=== PATIENT | female | born 1965 | race Caucasian/White ===

== ENCOUNTER 2016-12-06 20:58 | Emergency (ER) | payer BC ==
[2016-12-06] MEDS ORDERED: ONDANSETRON HCL 4 MG/2 ML VIAL ONE (21:42)
[2016-12-06] MEDS ORDERED: LOPERAMIDE HCL 2 MG CAPSULE PO ONE (22:55)
[2016-12-06] MEDS ORDERED: HALOPERIDOL 5 MG/ML VIAL ONE (23:22)
[2016-12-07] MEDS ORDERED: ONDANSETRON ODT PREPAC 4 MG TAB.RAPDIS PO ONE (00:35)
--- NOTE | 2016-12-07 00:51 | ER NURSING DOCUMENTATION ---
Nurse's Notes [facility] Name:Cindy Asencio Age:51 yrs Sex:Female :1965 Arrival Date:12/06/2016 Time:20:58 Bed3 Private MD: Diagnosis:Vomiting - Diarrhea;Abdominal Pain, Epigastric Presentation: 12/06 21:14 Presenting complaint: Patient states: Sudden onset of N/V/D. Transition of care: Home. [facility] 21:14 Method Of Arrival: Walk In [facility] 21:14 Acuity: DANIEL 3 [facility] Triage Assessment: 21:15 General: Appears in no apparent distress, Behavior is appropriate for age. Pain: [facility] Complains of pain in abdomen Pain does not radiate. GI: Abdomen is distended, Pt is actively vomiting bile, Bowel sounds present X 4 quads. Abdomen is tender to palpation X 4 quads. Reports diarrhea, nausea, vomiting. Historical: - Allergies: No known drug Allergies; - Home Meds: 1. Zoloft 100 mg oral tab Unknown once daily - Tetanus: < 10 years. - Ebola Screening: : No symptoms or risks identified at this time. . - Immunization history: Flu Vaccine < 1 year. - Social history: Smoking status: Patient states was never smoker of tobacco. Screenin:16 Infectious Disease Risk None. Abuse screen: Denies threats or abuse. Nutritional [facility] screening: No deficits noted. Assessment: 21:16 See Triage Assessment done by same RN. [facility] Vital Signs: 21:05 BP 135 / 82 LA Sitting (auto/reg); Pulse 86 RA; Resp 20 S; Temp 98.0(O); Pulse Ox 93% em3 on R/A; Weight 77.11 kg (R); Height 5 ft. 4 in. (162.56 cm) (R); 23:30 BP 125 / 78; Pulse 80; Resp 17; Pulse Ox 93% on R/A; [facility] 12/07 00:42 BP 132 / 67; Pulse 83; Resp 15; Temp 98.2; Pulse Ox 93% ; Pain 2/10; [facility] 12/06 21:05 Body Mass Index 29.18 (77.11 kg, 162.56 cm) em3 ED Course: 12/06 20:58 Patient arrived in ED. ma1 21:06 Valuables Remains with patient Patient has correct armband on for positive em3 identification. Placed in gown. Bed in low position. Call light in reach. Side rails up X 1. 21:13 Meka Sanchez is Primary Nurse. 4 21:14 Triage completed. mk4 21:16 Arm band placed on Bed in low position Call Light in Reach Side rails up x2. mk4 21:16 port warden on. Pulse ox on. NIBP on. Verbal reassurance given. Warm blanket given. mk4 21:19 Brody Merchant MD is Attending Physician. tl1 22:30 Inserted peripheral IV: 20 gauge in left antecubital area. [facility] 12/07 01:50 Primary Nurse role handed off by Meka Sanchez 4 01:50 Meka Sanchez is Primary Nurse. 4 Administered Medications: Completed: NS 0.9% 1000 ml 1000 ml IV at 1000 bolus in left antecubital once over 45 mins via Primary tubing x1 Completed: NS 0.9% 1000 ml IV at bolus once 12/06 21:30 Drug: NS 0.9% 1000 ml; Volume: 1000 ml; Route: IV; Rate: 1000 bolus; Infused Over: 45 mk4 mins; Site: left antecubital; Delivery: Primary tubing; 12/07 00:45 Follow up: IV Status: Completed infusion; IV Intake: 1000ml [facility] 12/06 21:30 Drug: Zofran 4 mg; Route: IVP; Rate: 4 bolus; Infused Over: 2 mins; Site: left [facility] antecubital; 12/07 00:45 Follow up: Response: No adverse reaction; Nausea is decreased [facility] 12/06 21:56 CANCELLED (Duplicate Order): Zofran 4 mg IVP once over 2 mins tl1 22:02 Drug: NS 0.9% 1000 ml; Volume: 1000 ml; Route: IV; Rate: bolus; Infused Over: 45 mins; 4 Site: left antecubital; 12/07 00:48 Follow up: IV Status: Completed infusion 4 00:48 Follow up: IV Intake: 1000ml [facility] 12/06 22:03 Drug: immodium 2 mg; Route: PO; [facility] 12/07 00:49 Follow up: Response: Pain is decreased [facility] 12/06 23:24 CANCELLED (Duplicate Order): Haldol 0.5 mg IVP at 0.5 bolus in left antecubital once mk4 over 2 mins x1 23:24 Drug: Haldol 2.5 mg; Route: IVP; Rate: 2 bolus; Infused Over: 2 mins; Site: left mk4 antecubital; 12/07 00:48 Follow up: Response: Nausea is decreased; Pain is decreased mk4 01:30 Drug: Zofran 1 tablet; Route: PO; mk4 01:52 Follow up: Response: Pharmacy closed - take home med pack mk4 Intake: 00:45 IV: 1000ml; Total: 1000ml. mk4 00:48 IV: 1000ml; Total: 2000ml. mk4 Outcome: 00:08 Discharge ordered by . tl1 00:42 Discharged to home ambulatory. mk4 00:42 Condition: good 00:42 Discharge Assessment: Patient awake, alert and oriented x 3. No cognitive and/or functional deficits noted. Patient verbalized understanding of disposition instructions. 00:42 Discharge instructions given to patient, Instructed on discharge instructions, follow up and referral plans. medication usage, Demonstrated understanding of instructions, Prescriptions given X 2. 00:50 IV D/Saroj mk4 00:50 Patient left the ED. mk4 01:53 Patient left the ED. mk4 14:23 Discharge F/U Call: Unable to reach: left voicemail: mari Signatures: Nessa Manriquez RN RN lc Meiklejohn, Eric em3 Meka Sanchez 4 Brody Merchant MD MD tl1 Hermila Bustos ut1
--- NOTE | 2016-12-07 00:51 | ER PHYSICIAN DOCUMENTATION ---
Physician Documentation [facility] Name:Cindy Asencio Age:51 yrs Sex:Female :1965 Arrival Date:12/06/2016 Time:20:58 Bed3 Private MD: Brody Stratton Disposition: 12/07 06:22 Chart complete. tl1 Disposition: 12/07/16 00:08 Discharged to Home/Self Care. Impression: Vomiting - Diarrhea, Abdominal Pain, Epigastric. - Condition is Good. - Prescriptions for Bentyl 10 mg Oral - take 1 capsule by ORAL route every 6 hours As needed; 20 capsule. Zofran 4 mg Oral Tablet - take 1-2 tablet by ORAL route every 4-6 hours As needed; 10 tablet. - Medical Reconciliation form form. - Follow up: Private Physician; When: 7 - 10 days; Reason: Recheck today's complaints, Continuance of care. - Problem is new. - Symptoms have improved. - Notes: OK TO TAKE IMMODIUM, ONE 2 MG TAB AFTER EACH LOOSE STOOL. DO NOT TAKE IF YOU ARE HAVING FEVER, BLOODY STOOLS OR SEVERE PAIN HPI: 12/06 21:10 This 51 yrs old Female presents to ER via Walk In with complaints of tl1 Nausea/Vomiting/Diarrhea. 21:10 The patient presents to the emergency department with nausea, that is moderate, with tl1 vomiting, 4 times since the onset of symptoms, described as with diarrhea, 20 times since the onset of symptoms, without any complaints of abdominal pain. Onset: The symptom(s)/episode began/occurred suddenly, this morning, 14 hour(s) ago. Possible causes: bad food exposure, sick contacts. 22:00 This is her 6th or 7th episode in the last 2 years of abdominal pain followed by tl1 bloating, nausea, vomiting and diarrhea. Today this started about 0730. She has vomited 4 times ( no blood) and had about 20 episodes of watery diarrhea. No fever or blood in her stools. The abdominal pain is crampy and waxes and wanes. No recent travel, antibiotics, untreated water,or recent ill contacts. She says she has seen her PCP in [place] and has had no workup or diagnosis. She is concerned because she is here alone, and this episode is lasting longer than prior episodes,and is a little worse.. Historical: - Allergies: No known drug Allergies; - Home Meds: 1. Zoloft 100 mg oral tab Unknown once daily - Tetanus: < 10 years. - Ebola Screening: : No symptoms or risks identified at this time. . - Immunization history: Flu Vaccine < 1 year. - Social history: Smoking status: Patient states was never smoker of tobacco. ROS: 22:00 Abdomen/GI: Positive for abdominal pain, nausea, vomiting, diarrhea, abdominal cramps, tl1 Negative for constipation, anorexia, hematemesis, black/tarry stool, rectal bleeding, bowel incontinence. 22:00 : Negative for urinary symptoms. 22:00 All other systems are negative. Exam: 22:00 Head/Face: Normocephalic, atraumatic. tl1 Eyes: Pupils equal round and reactive to light, extra-ocular motions intact. Lids and lashes normal. Conjunctiva and sclera are non-icteric and not injected. Cornea within normal limits. Periorbital areas with no swelling, redness, or edema. ENT: Nares patent. No nasal discharge, no septal abnormalities noted. Tympanic membranes are normal and external auditory canals are clear. Oropharynx with no redness, swelling, or masses, exudates, or evidence of obstruction, uvula midline. Mucous membranes moist. Chest/axilla: Normal chest wall appearance and motion. Nontender with no deformity. No lesions are appreciated. Cardiovascular: Regular rate and rhythm with a normal S1 and S2. No gallops, murmurs, or rubs. Normal PMI, no JVD. No pulse deficits. 22:00 Respiratory: Lungs have equal breath sounds bilaterally, clear to auscultation and tl1 percussion. No rales, rhonchi or wheezes noted. No increased work of breathing, no retractions or nasal flaring. 22:00 Constitutional: The patient appears alert, awake, well developed, well groomed, well nourished, anxious, obese, restless. 22:00 Abdomen/GI: Inspection: abdomen appears normal, Bowel sounds: active, Palpation: soft, mild abdominal tenderness, in all quadrants, no appreciated organomegaly. 22:00 Skin: Exam negative for acute changes, rash, Appearance: 22:00 Neuro: Exam negative for acute changes. Vital Signs: 21:05 BP 135 / 82 LA Sitting (auto/reg); Pulse 86 RA; Resp 20 S; Temp 98.0(O); Pulse Ox 93% em3 on R/A; Weight 77.11 kg (R); Height 5 ft. 4 in. (162.56 cm) (R); 23:30 BP 125 / 78; Pulse 80; Resp 17; Pulse Ox 93% on R/A; mk4 12/07 00:42 BP 132 / 67; Pulse 83; Resp 15; Temp 98.2; Pulse Ox 93% ; Pain 2/10; mk4 12/06 21:05 Body Mass Index 29.18 (77.11 kg, 162.56 cm) em3 MDM: 12/06 21:21 Patient medically screened. tl1 23:30 Differential diagnosis: Nonspecific abd pain, gastritis, viral gastroenteritis, tl1 gastroenteritis. Data reviewed: vital signs, and as a result, I will discharge patient. Counseling: I had a detailed discussion with the patient and/or guardian regarding: the historical points, exam findings, and any diagnostic results supporting the discharge/admit diagnosis, the need for outpatient follow up, for a referral to a specialist, with the patient's primary care provider, a cleaning crew member. Medication response: The patient's symptoms have improved, zofran, immodium and haldol. Response to treatment: the patient's symptoms have markedly improved after treatment, and as a result, I will discharge patient. ED course: She was feeling quite a bit better at the time of d/c and was OK going home. I encouraged her to insist on a GI referral. These recurrent episodes that are very similar make me wonder about irritable bowel, abdominal migraines, ibd, celiac disease. Dispensed Medications: Completed: NS 0.9% 1000 ml 1000 ml IV at 1000 bolus in left antecubital once over 45 mins via Primary tubing x1 Completed: NS 0.9% 1000 ml IV at bolus once 21:30 Drug: NS 0.9% 1000 ml; Volume: 1000 ml; Route: IV; Rate: 1000 bolus; Infused Over: 45 mk4 mins; Site: left antecubital; Delivery: Primary tubing; 12/07 00:45 Follow up: IV Status: Completed infusion; IV Intake: 1000ml mk4 12/06 21:30 Drug: Zofran 4 mg; Route: IVP; Rate: 4 bolus; Infused Over: 2 mins; Site: left mk4 antecubital; 12/07 00:45 Follow up: Response: No adverse reaction; Nausea is decreased mk4 12/06 21:56 CANCELLED (Duplicate Order): Zofran 4 mg IVP once over 2 mins tl1 22:02 Drug: NS 0.9% 1000 ml; Volume: 1000 ml; Route: IV; Rate: bolus; Infused Over: 45 mins; mk4 Site: left antecubital; 12/07 00:48 Follow up: IV Status: Completed infusion mk4 00:48 Follow up: IV Intake: 1000ml mk4 12/06 22:03 Drug: immodium 2 mg; Route: PO; mk4 12/07 00:49 Follow up: Response: Pain is decreased 4 12/06 23:24 CANCELLED (Duplicate Order): Haldol 0.5 mg IVP at 0.5 bolus in left antecubital once mk4 over 2 mins x1 23:24 Drug: Haldol 2.5 mg; Route: IVP; Rate: 2 bolus; Infused Over: 2 mins; Site: left [facility] antecubital; 12/07 00:48 Follow up: Response: Nausea is decreased; Pain is decreased mk4 01:30 Drug: Zofran 1 tablet; Route: PO; mk4 01:52 Follow up: Response: Pharmacy closed - take home med pack 4 Signatures: Meka Sanchez 4 Brody Merchant MD MD tl1
== END 2016-12-07 01:54 | disposition home or self-care (01) ==
LOC: ER 20:58
DX: R11.2 Nausea with vomiting, unspecified (principal); R19.7 Diarrhea, unspecified; R10.13 Epigastric pain; Z79.899 Other long term (current) drug therapy
CPT/HCPCS: 96361; 96374; 96375; 99284; J1630; J2405